=== PATIENT | female | born 1970 | race Caucasian/White ===

== ENCOUNTER 2020-10-08 07:40 | Emergency (ER) | payer SELFPAY ==
[2020-10-08 07:42] VITALS: BP 170/87; PULSE 84; RESP 16; TEMP 36.6; O2SAT 100; BMI 35.2
[2020-10-08 08:01] VITALS: BP 167/86; PULSE 80; O2SAT 100
--- NOTE | 2020-10-08 08:26 | HMH.EDGENADL ---
ED Disposition Clinical Impression: Sciatic leg pain Disposition: Home, Self-Care Condition on Discharge: Fair Instructions: DI for Back Pain With Sciatica Additional Instructions: CT of the lumbar spine shows the following there is mild bulging disc at L4-5 which is slightly eccentric to the left with moderate left-sided foraminal narrowing. L5-S1: Bulging disc is also present at L5-S1 with a suspected small central disc protrusion slightly eccentric toward the right. The bulging disc abuts the S1 nerve roots on both sides slightly greater on the right. There is facet and ligamentum hypertrophy with moderate bilateral lateral recess narrowing. We have given you shots of Toradol and Depo-Medrol; plan is to DC home with a prescription for a steroid Dosepak and advise [id number] medications; Please follow-up with primary care physician for further work-up; diet and exercise are advised Prescriptions: methylPREDNISolone [Medrol 4mg tab] 4 mg PO DIRECTED #21 tab Transmission Status: Pending to [id number] Forms: Work/School Release Time of Disposition: 10:22 - Critical Care Critical Care Time: No Attestation: On , the high probability of a clinically significant, sudden or life threatening deterioration of the following system(s) required my full and direct attention, intervention and personal management. The time I documented below is in addition to time spent performing reported procedures but includes the following listed in this critical care notation. Medical Decision Making - Medical Records MR Comment: 50-year-old obese female here with a complaint that she has a right sciatic pain; states she had a similar episode in June previously and once about 4 years ago; she denies any injury she says she did not have insurance so she has not really done anything about it all medications she is on his anti-inflammatory medications she denies any incontinence of bowel or urine. CT of the lumbar spine shows the following there is mild bulging disc at L4-5 which is slightly eccentric to the left with moderate left-sided foraminal narrowing. L5-S1: Bulging disc is also present at L5-S1 with a suspected small central disc protrusion slightly eccentric toward the right. The bulging disc abuts the S1 nerve roots on both sides slightly greater on the right. There is facet and ligamentum hypertrophy with moderate bilateral lateral recess narrowing. We have given the patient shots of Toradol and Depo-Medrol; plan is to DC home with a prescription for a steroid Dosepak and advise [id number] medications; will advise her to follow-up with her primary care physician for further work-up; diet and exercise are being advised - Nicolas Inquiry Pt receiving controlled substance: No Nicolas was queried for this patient: No Vital Signs: 10/08/20 07:42 10/08/20 08:01 Temperature 97.8 F Temperature Source Oral Pulse Rate 80 Pulse Rate [Right Radial] 84 Respiratory Rate 16 Blood Pressure 167/86 H Blood Pressure [Right Arm] 170/87 H Blood Pressure Mean 110 Blood Pressure Mean [Right Arm] 114 Blood Pressure Source [Right Arm] Automatic Cuff Blood Pressure Position [Right Arm] Sitting 02 Sat by Pulse Oximetry 100 100 Oxygen Delivery Method Room Air Orders (Tests/Meds): ED MEDICATIONS Discontinued Medications Generic Name Dose Route Start Last Admin Trade Name Freq PRN Reason Stop Dose Admin Ketorolac Tromethamine 60 mg 10/08/20 08:29 10/08/20 08:53 Ketorolac 60mg/2ml Vial IM 10/08/20 08:30 60 mg ONCE ONE Administration Methylprednisolone Acetate 80 mg 10/08/20 08:30 10/08/20 08:55 Methylprednisolone Acetate 80mg/Ml Vial IM 10/08/20 08:31 80 mg ONCE ONE Administration General Adult HPI - General Chief complaint: PAIN Stated complaint: sciatica pain Time Seen by Provider: 10/08/20 08:16 Mode of Arrival: Ambulatory Source of Information: Patient Sweet
--- NOTE | 2020-10-08 08:30 | CT_ITS ---
PROCEDURE: CT LUMBAR SPINE WO CON CLINICAL HISTORY: back pain, sciatica pain right LE COMPARISON: No exams were available for comparison TECHNIQUE: Axial images obtained with sagittal and coronal reformats. All CT scans at the facility use one or more dose reduction, viz: automated exposure control, ma/kV adjustment per patient size (including targeted exams where dose is matched to indication, i.e. head), or iterative reconstruction technique. FINDINGS: There is normal alignment. No acute fracture or dislocation is evident. No lytic or blastic change. There is mild bulging disc at L4-5 which is slightly eccentric to the left with moderate left-sided foraminal narrowing. L5-S1: Bulging disc is also present at L5-S1 with a suspected small central disc protrusion slightly eccentric toward the right. The bulging disc abuts the S1 nerve roots on both sides slightly greater on the right. There is facet and ligamentum hypertrophy with moderate bilateral lateral recess narrowing. 17 mm cystic area in the right adnexa which may be due to an ovarian cyst. Bilateral tubal ligation clips are present. The appendix has an unremarkable appearance. IMPRESSION: 1. Mild bulging disc at L4-5 slightly eccentric toward the left. 2. Bulging disc at L5-S1 with small central disc protrusion slightly eccentric toward the right. The disc does abut the S1 nerve roots on both sides right greater than left with bilateral lateral recess narrowing. Dictated by: Fish Baldersa MD 10/08/2020 09:05 Fish Balderas MD in [place] 10/08/2020 09:05
[2020-10-08 10:30] VITALS: BP 141/80; PULSE 68; RESP 17; TEMP 36.7; O2SAT 99
== END 2020-10-08 10:39 | disposition home or self-care (01) ==
PROVIDERS: Emergency Provider Emergency Medicine
DX: M54.41 Lumbago with sciatica, right side (principal)
CPT/HCPCS: 72131; 99282; J1040